=== PATIENT | female | born 1995 | race Caucasian/White ===

== ENCOUNTER 2018-05-19 12:22 | Emergency (ER) | payer OTHER ==
[2018-05-19] MEDS ORDERED: RANITIDINE 50 MG/2 ML VIAL IVP ONE (12:56)
--- NOTE | 2018-05-19 13:45 | EDPHY ---
H & P Smoking Status: Never smoked Time Seen by Provider: 05/19/18 12:40 HPI/ROS: CLINICAL IMPRESSION: Allergic reaction to medication ASSESSMENT/PLAN: 22-year-old female presents to the emergency department 1 hr after ingesting liquid gel ibuprofen and sustaining significant facial swelling, lip in tongue tingling, and pureed ache rash all over her body. 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 She takes no regular prescription medications. She reports never having taken liquid gel ibuprofen before. She has taken tablets of ibuprofen in the past without allergic reaction. No personal or family history of anaphylaxis. Patient received Solu-Medrol 125 and Benadryl by EMS EN route and was noting improvement on arrival. She received H2 alisia in the ED and after further observation symptoms nearly resolved. She was able to tolerate water and food without difficulty. No open wounds, intraoral involvement or ocular involvement. I recommend she see primary care and have allergy testing. I did prescribe an EpiPen and had a long conversation with her on appropriate use of this. Warning signs return to ED sooner outlined in person and discharge papers. DIFFERENTIAL DX: Allergic reaction, adverse medication reaction, anaphylaxis, urticaria ED COURSE: 1:30 p.m.: Patient reassessed, right eye swelling improving. Reports no increase in lip swelling or tingling. No tongue swelling, tongue tingling has resolved. No shortness of breath or chest tightness, no difficulty breathing. Rash also improving CHIEF COMPLAINT: Allergic reaction HPI: 22-year-old female with no significant medical history aside from thalassemia alpha type presents to the emergency department by EMS after she reportedly had allergic reaction at her place of employment. Patient works in a local [employer] shop but lives in [place]. She reports she had a headache, was given 3 ibuprofen liquid gel tablets by a co-worker, which she has never taken before, and approximately 7 min later reported having tingling to the tongue, lips, facial and eye swelling, and an itchy rash over her face and body. Patient has taken tablet form of ibuprofen before with no allergic reaction. She denies any other Co ingestions, new foods, topical agents, recent travel, or recent antibiotics. She did complete a 5 day course of 40 mg prednisone 3 days ago for inflamed tonsils. No history of anaphylaxis and no family history of anaphylaxis. No open wounds or blisters. No lesions in the mouth or eyes. Patient notes she is feeling improved on arrival. 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 PHYSICAL EXAM: General Appearance: Alert, oriented, appropriate, cooperative, NAD, well hydrated, non-toxic appearing, VSS, no hypoxia, tolerating secretions, no audible wheezing or stridor. HEENT: TMs are clear bilaterally no perforation or FB, no injection, no evidence of serous or mucopurulent otitis. Oropharynx clear is no erythema or exudates, no tonsillar hypertrophy or asymmetry. No tongue swelling, upper airway without swelling, no uvulitis Dentition without abnormality. Eyes: PERRLA, no acute vision change, nystagmus, swelling, discharge, pain or photosensitivity. Conjunctiva pink, no pallor or injection, right greater than left infraorbital edema not compromising vision Neck: Supple, nontender, no lymphadenopathy, no midline pain, FROM, no meningismus. Respiratory: There are no retractions, lungs are clear to auscultation. Cardiac: Regular rate and rhythm, no murmurs or gallops. Gastrointestinal: Abdomen is soft, nontender, bowel sounds normal, no masses/ hernia, no rigidity, guarding or focal peritoneal findings. Skin: Faint, flat, erythematous macular rash noted to face, neck, chest and back. No blisters, intra-ocular or intraoral involvement MEDICAL DECISION MAKING: Patient was seen independently. Secondary supervising physician at time of evaluation was Dr. Tapia. Diagnosis: Allergic reaction to medication. New, requires workup Summary: See Assessment and Plan for summary of ED visit Decision to obtain medical records or history from someone other than the patient: Patient's friend who is at bedside Patient Progress: Stable, improved. (Jalen Wilder) Constitutional: Initial Vital Signs Temperature (C) 36.8 C 05/19/18 12:22 Heart Rate 61 05/19/18 12:22 Respiratory Rate 18 05/19/18 12:22 Blood Pressure 134/74 H 05/19/18 12:22 O2 Sat (%) 97 05/19/18 12:22 O2 Delivery Mode Room Air Allergies/Adverse Reactions: No Known Allergies Allergy (Unverified 05/19/18 12:33) Home Medications: Medication Instructions Recorded Control 05/19/18 EPINEPHrine [Epipen 0.3 MG] 0.3 mg IM ONCE #2 syr 05/19/18 predniSONE [Prednisone] 40 mg PO DAILY #8 tablet 05/19/18 MDM/Departure - MDM Medications Given: Discontinued Medications Ranitidine HCl (Zantac) 50 mg IVP EDNOW ONE Stop: 05/19/18 12:57 Last Admin: 05/19/18 13:06 Dose: 50 mg ED Course/Re-evaluation: The patient was evaluated and managed by the Physician Mail Weigher. My co- signature indicates that I have reviewed this chart and I agree with the findings and plan of care as documented. I am the secondary supervising physician. (Shelbi Branch) - Depart Disposition: Home, Routine, Self-Care Clinical Impression: Allergic reaction Qualifiers: Encounter type: initial encounter Qualified Code(s): T78.40XA - Allergy, unspecified, initial encounter Condition: Fair Instructions: Allergies (ED) Additional Instructions: DISCHARGE INSTRUCTIONS FROM YOUR DOCTOR Thank you for visiting our emergency department today. Please keep in mind that discharge from the emergency department does not mean that there is nothing wrong - it simply means that we have not identified an emergency condition that requires further evaluation or treatment in the hospital. You should always plan to follow up with primary care for re-evaluation of your condition in the next 2-3 days. If you have been referred to a specialist, please call as soon as possible (today or tomorrow) to schedule your follow up appointment at the appropriate time. You appear to have had an allergic reaction today although it is not entirely clear what the reaction was caused by. We recommend you take Roma in the morning for 3 days, Pepsid AC or Zantac in the morning for 3 days, and Benadryl at night for the next 3 days. I also gave you 2 more days of a steroid to take starting tomorrow. Please monitor symptoms closely at home and please contact a PCP and bar captain for followup care. Referrals were given if needed. I also gave you a prescription for an Epi pen to use if you have severe swelling, tongue swelling, trouble breathing, chest tightness or shortness of breath. Return to the ER for return of symptoms, worsening symptoms, trouble breathing, tongue swelling, trouble swallowing or any other concerns. People present with illnesses and injuries in different ways, and it is always possible that we have missed something. You may always return for re-evaluation if symptoms worsen or if they are not improving or if you develop new/different symptoms. Again, thank you for choosing our emergency department. We hope that you feel better. Prescriptions: EPINEPHrine [Epipen 0.3 MG] 0.3 mg IM ONCE #2 syr predniSONE [Prednisone] 40 mg PO DAILY #8 tablet Referrals: NONE *PRIMARY CARE P,. [Primary Care Provider] - As per Instructions Mae Romero MD [Medical Doctor] - 1-2 days without fail Tianna Rachel MD [[facility] [place] Primary Care Provider] - 1-2 days without fail
[2018-05-19 14:40] VITALS: BP 108/69
== END 2018-05-19 14:17 | disposition home or self-care (01) ==
DX: T78.40XA Allergy, unspecified, initial encounter (principal); R21 Rash and other nonspecific skin eruption; D56.0 Alpha thalassemia
CPT/HCPCS: 96374; J2780